=== PATIENT | male | born 1930 | race Asian ===

== ENCOUNTER 2017-06-03 09:11 | Emergency (ER) | payer OTHER ==
--- NOTE | 2017-06-03 09:34 | PDOC ---
History of Present Illness <Tristian Vargas - Last Filed: 06/03/17 18:21> - General History Source: Patient Exam Limitations: No Limitations - History of Present Illness Initial Comments: 06/03/17 10:29 The patient is a 86 year old Kazakh speaking male BIBA with a significant past medical history of HTN, HLD, Mild Dementia who presents to the emergency department s/p near syncope. Patient was at his bus stop enroute to his adult day care center. Bystanders witnessed the patient when he was about to fall. Patient was caught and did not fall. EMS was called and was brought to the ED for further evaluation. Upon evaluation, patient has noted decreased appetite. Patients last meal was last evening. Patient also endorses urinary frequency however denies dysuria, urgency or hematuria. Patient denies any dizziness, lightheadedness, weakness, headache or chest pain He denies fever, chills, abdominal pain, nausea, vomit, diarrhea or constipation. He denies . Patient denies sick contacts or recent travel. [facility] [place] #[id number] Allergies: NKA Past surgical history: None Social history: None PCP: Dr. Turner <Danielle Brizuela - Last Filed: 06/03/17 18:46> - General Chief Complaint: Syncope/Near Syncope Stated Complaint: SYNCOPE Time Seen by Provider: 06/03/17 09:31 Past History <Tristian Vargas - Last Filed: 06/03/17 18:21> <Danielle Brizuela - Last Filed: 06/03/17 18:46> - Past Medical History Allergies/Adverse Reactions: Allergies Allergy/AdvReac Type Severity Reaction Status Date / Time No Known Allergies Allergy Verified 06/03/17 09:39 Home Medications: Ambulatory Orders Amlodipine Besylate 5 mg PO DAILY 06/03/17 Aspirin [ASA -] 81 mg PO DAILY 06/03/17 Donepezil HCl 5 mg PO DAILY 06/03/17 [place]-3 Fatty Acids/Fish Oil [Fish Oil Pearls Softgel] 1 each PO DAILY 06/03/17 Rosuvastatin [Crestor -] 5 mg PO HS 06/03/17 Valsartan 160 mg PO DAILY 06/03/17 Review of Systems - Review of Systems Able to Perform ROS?: Yes Comments:: 06/03/17 10:29 GENERAL/CONSTITUTIONAL: No fever or chills. No weakness. HEAD, EYES, EARS, NOSE AND THROAT: No change in vision. No ear pain or discharge. No sore throat. CARDIOVASCULAR: No chest pain or shortness of breath. RESPIRATORY: No cough, wheezing, or hemoptysis. GASTROINTESTINAL: No nausea, vomiting, diarrhea or constipation. GENITOURINARY: No dysuria, frequency, or change in urination. MUSCULOSKELETAL: No joint or muscle swelling or pain. No neck or back pain. SKIN: No rash NEUROLOGIC: No headache, vertigo, loss of consciousness, or change in strength/ sensation. ENDOCRINE: No increased thirst. No abnormal weight change. HEMATOLOGIC/LYMPHATIC: No anemia, easy bleeding, or history of blood clots. ALLERGIC/IMMUNOLOGIC: No hives or skin allergy. <Danielle Brizuela - Last Filed: 06/03/17 18:46> *Physical Exam - Vital Signs Last Vital Signs Temp Pulse Resp BP Pulse Ox 98.5 F 52 L 18 148/64 99 06/03/17 09:15 06/03/17 09:15 06/03/17 09:15 06/03/17 09:15 06/03/17 09:15 - Physical Exam Comments: 06/03/17 10:29 GENERAL: Awake, alert, and fully oriented, in no acute distress. +Cachectic. HEAD: No signs of trauma EYES: PERRLA, EOMI, sclera anicteric, conjunctiva clear ENT: Auricles normal inspection, hearing grossly normal, nares patent, oropharynx clear without exudates. Moist mucosa NECK: Normal ROM, supple, no lymphadenopathy, JVD, or masses LUNGS: Breath sounds equal, clear to auscultation bilaterally. No wheezes, and no crackles HEART: Regular rate and rhythm, normal S1 and S2, no murmurs, rubs or gallops ABDOMEN: Soft, nontender, normoactive bowel sounds. No guarding, no rebound. No masses EXTREMITIES: Normal range of motion, no edema. No clubbing or cyanosis. No cords, erythema, or tenderness NEUROLOGICAL: Cranial nerves II through XII grossly intact. Normal speech. SKIN: Warm, Dry, normal turgor, no rashes or lesions noted. <Danielle Brizuela - Last Filed: 06/03/17 18:46> Heart Score/ECG Review #1 06/03/17 11:03 ECG Reviewed by Alicia Yost. rate 49 Sinus bradycardia [place] Interval 192 ms QRS Duration 154 ms QT/QTc 466/420 ms P-R-T axes 68 249 29 <Danielle Brizuela - Last Filed: 06/03/17 18:46> ED Treatment Course - LABORATORY CBC & Chemistry Diagram: 06/03/17 10:34 06/03/17 10:34 <Tristian Vargas - Last Filed: 06/03/17 18:21> - LABORATORY CBC & Chemistry Diagram: 06/03/17 10:34 06/03/17 10:34 <GelacioDanielle - Last Filed: 06/03/17 18:46> Medical Decision Making - Medical Decision Making 06/03/17 13:27 Dr. Turner paged via office number. Discussed patients case. Will see patient tomorrow afternoon in office <Danielle Brizuela - Last Filed: 06/03/17 18:46> *DC/Admit/Observation/Transfer - Discharge Dispostion Admit: No - Attestations Physician Attestion: 06/03/17 09:33 I, Dr. Tristian Vargas, attest that this document has been prepared under my direction and personally reviewed by me in its entirety. I further attest, that it accurately reflects all work, treatment, procedures and medical decision -making performed by me. <Tristian Vargas - Last Filed: 06/03/17 18:21> - Attestations Scribe Attestion: 06/03/17 10:29 Documentation prepared by Danielle Brizuela, acting as phlebotomist medical lab assistant for Tristian Vargas DO. <GelacioDanielle - Last Filed: 06/03/17 18:46> Diagnosis at time of Disposition: Vasovagal near syncope - Discharge Dispostion Condition at time of disposition: Unchanged/Unknown - Referrals Referrals: David Turner MD [Primary Care Provider] - - Patient Instructions Printed Discharge Instructions: DI for Syncope in Adults (Fainting) Additional Instructions: SEE YOUR DOCTOR TOMORROW at 1PM. HE IS ALREADY EXPECTING YOU.
[2017-06-03 09:46] VITALS: BMI 17.7
[2017-06-03 10:48] LABS: BASOPHIL 0.7 % (0-2.0); EOSINOPHIL 0.2 % (0-4.5); MCH 30.7 pg (25.7-33.7); MCHC 33.8 g/dl (32.0-35.9); MEAN PLT VOLUME 8.3 fl (7.5-11.1); NEUTROPHILS 80.7 % (42.8-82.8); PLATELET COUNT 184 K/MM3 (134-434); RDW 13.6 % (11.9-15.9)
[2017-06-03 11:00] LABS: INR 0.92 (0.82-1.09); PROTHROMBIN TIME (PATIENT) 10.4 SEC (9.98-11.88)
[2017-06-03 11:16] LABS: ALBUMIN 3.7 g/dl (3.4-5.0); ANION GAP 5 (8-16); BILIRUBIN,TOTAL 0.8 mg/dL (0.2-1.0); CALCIUM 8.4 mg/dL (8.5-10.1); CO2 28 mmol/L (21-32); CREATININE 1.1 mg/dL (0.7-1.3); GLUCOSE,RANDOM 107 mg/dL (74-106); MAGNESIUM 2.4 mg/dL (1.8-2.4); SGOT/AST 31 U/L (15-37); SGPT/ALT 31 U/L (12-78); TOT PROT 6.5 g/dl (6.4-8.2)
[2017-06-03 11:19] LABS: ALK PHOS 79 U/L (45-117); CPK 196 IU/L (39-308); TROPONIN I < 0.02 ng/ml (0.00-0.05)
[2017-06-03 13:25] LABS: URINE APPEARANCE CLEAR; URINE BILIRUBIN NEGATIVE (NEGATIVE); URINE BLOOD NEGATIVE (NEGATIVE); URINE COLOR LTYELLOW; URINE GLUCOSE (UA) NEGATIVE (NEGATIVE); URINE KETONE TRACE (NEGATIVE); URINE NITRITE NEGATIVE (NEGATIVE); URINE UROBILINOGEN NEGATIVE mg/dL (0.2-1.0)
[2017-06-03 13:29] LABS: URINE PROTEIN 2+ (NEGATIVE)
[2017-06-03 13:31] LABS: URINE HYALINE CAST 1 /lpf; URINE MUCUS RARE; URINE RBC <1 /hpf (0-3); URINE WBC 1 /hpf (3-5)
--- NOTE | 2017-06-03 14:41 | EKG ---
Test Reason : Blood Pressure : / mmHG Vent. Rate : 049 BPM Atrial Rate : 049 BPM P-R Int : 192 ms QRS Dur : 154 ms QT Int : 466 ms P-R-T Axes : 068 249 029 degrees QTc Int : 420 ms SINUS BRADYCARDIA POSSIBLE LEFT ATRIAL ENLARGEMENT RIGHT BUNDLE BRANCH BLOCK SEPTAL INFARCT , AGE UNDETERMINED ABNORMAL ECG NO PREVIOUS ECGS AVAILABLE Confirmed by JACI ALVARADO MD ([id number]) on 06/03/2017 2:40:55 PM Referred By: Confirmed By:JACI ALVARADO MD
[2017-06-03 15:20] LABS: URINE LEUK ESTERASE Negative (NEGATIVE)
[2017-06-03 18:18] VITALS: BP 159/71; PULSE 61; TEMP 98.3
--- NOTE | 2017-06-03 19:49 | PDOC ---
*Physical Exam - Vital Signs Last Vital Signs Temp Pulse Resp BP Pulse Ox 98.3 F 61 17 159/71 98 06/03/17 17:00 06/03/17 17:00 06/03/17 17:00 06/03/17 17:00 06/03/17 17:00 - Physical Exam General Appearance: Yes: Nourished Neurologic: positive: Normal Mood/Affect, Normal Response, Motor Strength 5/5 ED Treatment Course - LABORATORY CBC & Chemistry Diagram: 06/03/17 10:34 06/03/17 10:34 - ADDITIONAL ORDERS Additional order review: Laboratory Results 06/03/17 06/03/17 06/03/17 13:10 10:34 10:34 PT with INR INR Sodium 140 Potassium 4.7 Chloride 107 Carbon Dioxide 28 Anion Gap 5 L BUN 30 H Creatinine 1.1 Creat Clearance w eGFR > 60 Random Glucose 107 H Lactic Acid 0.9 Calcium 8.4 L Magnesium 2.4 Total Bilirubin 0.8 AST 31 ALT 31 Alkaline Phosphatase 79 Creatine Kinase 196 Creatine Kinase Index 3.0 CK-MB (CK-2) 5.990 H Troponin I < 0.02 Total Protein 6.5 Albumin 3.7 Urine Color Ltyellow Urine Appearance Clear Urine pH 5.0 Ur Specific [place] 1.020 Urine Protein 2+ H Urine Glucose (UA) Negative Urine Ketones Trace H Urine Blood Negative Urine Nitrite Negative Urine Bilirubin Negative Urine Urobilinogen Negative Ur Leukocyte Esterase Negative Urine RBC <1 Urine WBC 1 Ur Epithelial Cells Rare Hyaline Casts 1 Urine Mucus Rare 06/03/17 10:34 PT with INR 10.40 INR 0.92 Sodium Potassium Chloride Carbon Dioxide Anion Gap BUN Creatinine Creat Clearance w eGFR Random Glucose Lactic Acid Calcium Magnesium Total Bilirubin AST ALT Alkaline Phosphatase Creatine Kinase Creatine Kinase Index CK-MB (CK-2) Troponin I Total Protein Albumin Urine Color Urine Appearance Urine pH Ur Specific [place] Urine Protein Urine Glucose (UA) Urine Ketones Urine Blood Urine Nitrite Urine Bilirubin Urine Urobilinogen Ur Leukocyte Esterase Urine RBC Urine WBC Ur Epithelial Cells Hyaline Casts Urine Mucus 06/03/17 10:34 RBC 4.52 MCV 91.0 MCHC 33.8 RDW 13.6 MPV 8.3 Neutrophils % 80.7 Lymphocytes % 10.8 Monocytes % 7.6 Eosinophils % 0.2 Basophils % 0.7 Medical Decision Making - Medical Decision Making 10/30/17 19:46 Asked to follow-up MRI. No acute findings on MRI brain MRA head and neck. Patient has follow-up with his primary care provider at 1 PM tomorrow Findings, the need for follow-up, strict return instructions discussed with patient. *DC/Admit/Observation/Transfer Diagnosis at time of Disposition: Vasovagal near syncope - Discharge Dispostion Condition at time of disposition: Unchanged/Unknown - Referrals Referrals: David Turner MD [Primary Care Provider] - - Patient Instructions Printed Discharge Instructions: DI for Syncope in Adults (Fainting) Additional Instructions: Take all home medications as prescribed. Return to the emergency department for any severe worsening symptoms or for any concerns. Follow-up with your doctor at 1 PM tomorrow morning you have an appointment ready-made. - Post Discharge Activity
== END 2017-06-03 20:24 | disposition home or self-care (01) ==
LOC: JER 09:11
DX: R55 Syncope and collapse (principal); Z79.82 Long term (current) use of aspirin; I10 Essential (primary) hypertension; E78.00 Pure hypercholesterolemia, unspecified; F03.90 Unspecified dementia, unspecified severity, without behavioral disturbance, psychotic disturbance, mood disturbance, and anxiety
CPT/HCPCS: 36415; 70450-TC; 70544-TC; 70551-TC; 71010-TC; 80053; 81003; 81015; 82550; 82553; 83605; 83735; 84484; 85025; 85610; 93005; 93010; 99285-25; C1887